=== PATIENT | male | born 1995 | race Hispanic/Latino ===

== ENCOUNTER 2020-05-27 21:53 | Emergency (ER) | payer OTHER ==
[~2020-05-27] VITALS: Ht 175.3 cm; Wt 72.3 kg
[2020-05-27 21:54] VITALS: BP 130/84
--- NOTE | 2020-05-27 22:35 | REPVR ---
PROCEDURE INFORMATION: Exam: XR Left Wrist Exam date and time: 05/27/2020 10:09 PM Age: 24 years old Clinical indication: Other: Pain TECHNIQUE: Imaging protocol: XR Left wrist. Views: 3 or more views. COMPARISON: No relevant prior studies available. FINDINGS: Bones/joints: Normal. Soft tissues: Normal. IMPRESSION: No acute findings. Electronically signed by: Walter Waterman On 05/27/2020 22:35:06 PM
== END 2020-05-27 23:01 | disposition home or self-care (01) ==
LOC: M ED 21:53
DX: S63.502A Unspecified sprain of left wrist, initial encounter (principal); W19.XXXA Unspecified fall, initial encounter; Y92.89 Other specified places as the place of occurrence of the external cause; Y93.9 Activity, unspecified; Y99.9 Unspecified external cause status

== ENCOUNTER 2020-12-18 02:39 | Inpatient (IN) | payer OTHER ==
[~2020-12-18] VITALS: Ht 175.3 cm; Wt 72.7 kg
[2020-12-18 03:43] LABS: HEMATOCRIT 45.6 % (42.0-52.0); HEMOGLOBIN 15.5 g/dl (13.5-17.5); MEAN CORPUSCULAR HEMOGLOBIN 30.1 pg (27.0-33.0); MEAN CORPUSCULAR VOLUME 88.5 fl (80.0-96.0); PLATELET COUNT, AUTOMATED 313 10^3/uL (150-450); RED BLOOD COUNT 5.15 10^6/uL (4.30-6.10); WHITE BLOOD COUNT 7.3 10^3/uL (4.0-10.0)
[2020-12-18 04:07] LABS: AMPHETAMINES LEVEL URINE NEGATIVE (NEGATIVE); BARBITURATES URINE NEGATIVE (NEGATIVE); BENZODIAZEPINES URINE NEGATIVE (NEGATIVE); CANNABINOIDS URINE NEGATIVE (NEGATIVE); COCAINE METABOLITE URINE NEGATIVE (NEGATIVE); METHADONE URINE NEGATIVE (NEGATIVE); OPIATES URINE NEGATIVE (NEGATIVE); PHENCYCLIDINE URINE NEGATIVE (NEGATIVE)
[2020-12-18 04:18] LABS: ACETAMINOPHEN LEVEL < 2.0 UG/ML (10.0-30.0); ALBUMIN 4.3 GM/DL (3.2-5.2); ALT/SGPT 19 U/L (12-78); BILIRUBIN,DIRECT 0.2 MG/DL (0.0-0.2); BILIRUBIN,TOTAL 0.7 MG/DL (0.2-1.0); BLOOD UREA NITROGEN 12 MG/DL (7-18); CALCIUM LEVEL 9.4 MG/DL (8.5-10.1); CARBON DIOXIDE LEVEL 25 MEQ/L (21-32); CHLORIDE LEVEL 110 MEQ/L (98-107); CREATININE FOR GFR 0.65 MG/DL (0.70-1.30); ETHYL ALCOHOL (ETHANOL) 0.073 % (0.000-0.010); GLOMERULAR FILTRATION RATE > 60.0 (>60); GLUCOSE, FASTING 114 MG/DL (70-100); POTASSIUM SERUM 3.8 MEQ/L (3.5-5.1); SALICYLATE LEVEL < 1.7 MG/DL (5.0-30.0); SODIUM LEVEL 145 MEQ/L (136-145); TOTAL PROTEIN 7.7 GM/DL (6.4-8.2)
[2020-12-18] MEDS ORDERED: LORazepam 2 MG TAB PO STA (07:39)
[2020-12-18] MEDS ORDERED: OLANZapine ORAL DISINTEGRATING TAB 5MG PO ONE ×2 (11:05→16:35)
[2020-12-18] MEDS ORDERED: LORazepam 2 MG TAB PO ONE (16:35)
[2020-12-19] MEDS ORDERED: LORazepam 2 MG/ML VIAL IM ONE (06:25)
[2020-12-19] MEDS ORDERED: diphenhydrAMINE 50MG/ML VIAL (J1200) IM ONE (06:25)
[2020-12-19] MEDS ORDERED: HALOPERIDOL 5MG/ML VIAL (J1630 PER 1) IM ONE (06:25)
[2020-12-19] MEDS ORDERED: LORazepam 2 MG/ML VIAL As Ordered ONE (06:28)
[2020-12-19] MEDS ORDERED: MAALOX 30 ML SUSP *UDC PO PRN (15:20)
[2020-12-19] MEDS ORDERED: MOM 30ML SUSPENSION UDC PO PRN (15:20)
[2020-12-19] MEDS ORDERED: IBUPROFEN 400MG TAB PO PRN (15:20)
[2020-12-19 15:39] LABS: RSV AMPLIFICATION NEGATIVE (NEGATIVE)
[2020-12-19] MEDS: traZODone 50 MG TAB PO PRN (22:08)
[2020-12-20 06:49] VITALS: BP 139/58
[2020-12-20] MEDS: NICOTINE 21MG/24HR 1 EA TRANSDERMAL TD SCH (08:50)
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
[2020-12-20 16:00] VITALS: BP 132/79
[2020-12-20] MEDS ORDERED: LURASIDONE 20 MG TAB (LATUDA) PO SCH (18:00)
--- NOTE | 2020-12-20 18:20 | HPEPDOC ---
[facility] Medical History & Physical Date of Admission Dec 20, 2020 Date of Service: Dec 20, 2020 History and Physical CHIEF COMPLAINT: Suicidal ideation HISTORY OF PRESENT ILLNESS: 25-year-old male with no reported prior medical history, presented to the ER via EMS after his became concerned that he was trying to commit suicide via carbon monoxide poisoning in their garage. Patient reports getting into an argument with his , regarding marital troubles. He reports that he drank 6 pints of whiskey and went into the garage to sit in his car. His found him in the garage with angina running and became concerned that he try to commit suicide. She called EMS. On examination, patient is alert, oriented, and collected. He is pleasant. He does not report prior medical history and has no acute physical complaints. He currently denies suicidal ideation, homicidal ideation, as well as visual and auditory hallucinations. Vitals signs were reviewed. Upon examination, patient is afebrile with a pulse of 78. Respiratory rate is 18, blood pressure 132/79, and patient is saturating at 99% at room air. Patient denies any chest pain, shortness of breath, palpitations, cough, fevers, chills, headache, nausea, vomiting or diarrhea. Lab work was reviewed in no acute mL is seen on CBC, CMP, carboxyhemoglobin level of 1.0. Ethanol alcohol level elevated at 0.073 on admission. PAST MEDICAL HISTORY: Patient reports no prior medical history PAST SURGICAL HISTORY: Circumcision SOCIAL HISTORY: Patient states that he drinks infrequently, approximately once per month. No history of ethanol use disorder. Denies smoking. Denies illicit drug use FAMILY HISTORY: Reviewed with patient, he offered no pertinent family medical history ALLERGIES: Please see below. REVIEW OF SYSTEMS: 10 point review of systems was conducted relevant findings are noted in the HPI HOME MEDICATIONS: Please see below. PHYSICAL EXAMINATION: VITAL SIGNS: please see below General: NAD, comfortable HEENT: PERRLA, EOMI, sclerae clear Neck: supple, normal ROM, no JVD Respiratory: lungs CTAB, no wheeze, no rales, no crackles CVS: RRR, normal S1, S2, no murmurs Abdo: soft, no masses, no hepatosplenomegaly, BS+, no rebound tenderness Extremities: no edema, pulses 2+ MSK: no joint deformities, normal ROM Neuro: no focal neuro deficits, moving all 4 extremities, CN2-12 intact. Strength 5/5 in all 4 extremities. No nystagmus. Psych: calm, cooperative, AAO x 3 LABORATORY DATA: See below. MICROBIOLOGY: Please see below. ASSESSMENT:25-year-old male with no reported prior medical history, presented to the ER via EMS after his became concerned that he was trying to commit suicide via carbon monoxide poisoning in their garage. Hospital service was consulted for medical intake. . PLAN: Suicidal ideation: Per psychiatry Possible CO poisoning: carbohyhemoglobin level 1.0 on arrival. Patient is alert, oriented and is not SOB. saturating well. Thank you for the consult. Please re-consult as needed. Vital Signs Vital Signs Date Time Temp Pulse Resp B/P (MAP) Pulse Ox O2 Delivery O2 Flow Rate FiO2 12/20/20 16:00 98.4 94 18 132/79 (96) 99 Room Air Home Medications No Active Prescriptions or Reported Meds Allergies Coded Allergies: No Known Allergies (Unverified , 05/27/20) A-FIB/CHADSVASC Age/Risk Factor Scoring CHADSVASC: CHADSVASC Response (Comments) Value Gender Risk Factor Male 0 Hx of CHF No 0 Hx of HTN No 0 Hx of Stroke/TIA/or VTE No 0 Hx of Diabetes No 0 Hx of Vascular Disease No 0 Total SOLEDAD MARTÍNEZ MD Dec 20, 2020 18:20
[2020-12-20] MEDS ORDERED: fluvoxaMINE MALEATE 50 MG TAB PO SCH (21:00)
[2020-12-20] MEDS: traZODone 50 MG TAB PO PRN (23:18)
[2020-12-21] MEDS: OLANZapine ORAL DISINTEGRATING TAB 5MG PO PRN (01:07)
[2020-12-21 06:39] VITALS: BP 130/61
[2020-12-21] MEDS: NICOTINE 21MG/24HR 1 EA TRANSDERMAL TD SCH (09:00)
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
[2020-12-21 16:05] VITALS: BP 116/58
[2020-12-21] MEDS: traZODone 50 MG TAB PO PRN (20:13)
[2020-12-22] MEDS: OLANZapine ORAL DISINTEGRATING TAB 5MG PO PRN (00:24)
[2020-12-22 06:00] VITALS: BP 123/70
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
[2020-12-22] MEDS: NICOTINE 21MG/24HR 1 EA TRANSDERMAL TD SCH (08:29)
== END 2020-12-22 11:11 | disposition home or self-care (01) | DRG 882 ==
LOC: M ED 02:39 → M ED INP 12-19 15:16 → M PSY 12-19 18:16
PROVIDERS: ADMIT Psychiatry & Neurology Psychiatry; ATTEND Psychiatry & Neurology Psychiatry
DX: F43.25 Adjustment disorder with mixed disturbance of emotions and conduct (principal); R45.851 Suicidal ideations; Z20.822 Contact with and (suspected) exposure to COVID-19; Z63.0 Problems in relationship with spouse or partner

== ENCOUNTER 2021-11-29 10:21 | Emergency (ER) | payer OTHER ==
[~2021-11-29] VITALS: Ht 175.3 cm; Wt 74.5 kg
[2021-11-29 12:50] VITALS: BP 132/80
== END 2021-11-29 12:50 | disposition home or self-care (01) ==
LOC: M ED 10:21
DX: S40.011A Contusion of right shoulder, initial encounter (principal); W10.9XXA Fall (on) (from) unspecified stairs and steps, initial encounter; Y92.9 Unspecified place or not applicable; Y93.9 Activity, unspecified; Y99.9 Unspecified external cause status

== ENCOUNTER 2022-04-28 19:00 | Emergency (ER) | payer OTHER ==
[~2022-04-28] VITALS: Ht 175.3 cm; Wt 61.4 kg
[2022-04-28] MEDS ORDERED: KETOROLAC 60MG 2ML VIAL IM ONE (22:00)
[2022-04-28 23:35] VITALS: BP 130/74
== END 2022-04-28 23:37 | disposition home or self-care (01) ==
LOC: M ED 19:00
DX: M54.50 Low back pain, unspecified (principal); M25.569 Pain in unspecified knee; Y92.89 Other specified places as the place of occurrence of the external cause; Y99.1 Military activity
CPT/HCPCS: 72100; 73564; 96372; 99283; J1885

== ENCOUNTER 2022-10-03 13:28 | Emergency (ER) | payer OTHER ==
[~2022-10-03] VITALS: Ht 175.3 cm; Wt 75.0 kg
[2022-10-03 13:29] VITALS: BP 129/77
[2022-10-03] MEDS ORDERED: IBUP200T46 PO (13:57)
[2022-10-03] MEDS ORDERED: ACETAMINOPHEN 500 MG TAB PO ONE (14:00)
== END 2022-10-03 18:34 | disposition left against medical advice (07) ==
LOC: M ED 13:28
DX: Z53.21 Procedure and treatment not carried out due to patient leaving prior to being seen by health care provider (principal)

== ENCOUNTER 2023-09-30 09:37 | Emergency (ER) | payer OTHER ==
[~2023-09-30] VITALS: Ht 175.3 cm; Wt 74.8 kg
[~2023-09-30 09:37] MED LIST: IBUP200T46 PO
[2023-09-30 11:50] VITALS: BP 115/69; TEMP 98.2; O2SAT 99
[2023-09-30 11:55] LABS: RSV AMPLIFICATION NEGATIVE (NEGATIVE)
[2023-09-30] MEDS: ACETAMINOPHEN 325 MG TAB PO ONE (13:42)
[2023-09-30] MEDS ORDERED: AMOX500C PO (14:00)
[2023-09-30] MEDS ORDERED: ONDA4TAB6 PO (14:00)
== END 2023-09-30 14:12 | disposition home or self-care (01) ==
LOC: EDBD 09:37 → M ED 09:37
DX: J02.0 Streptococcal pharyngitis (principal); Z79.2 Long term (current) use of antibiotics; Z79.83 Long term (current) use of bisphosphonates; Z79.1 Long term (current) use of non-steroidal anti-inflammatories (NSAID)